=== PATIENT | female | born 1950 | race Caucasian/White ===

== ENCOUNTER 2016-12-01 08:31 | Day surgery (SDC) | payer OTHER ==
[2016-11-30 14:55] VITALS: BMI 24.7
[2016-12-01 10:29] VITALS: TEMP 98
[2016-12-01 12:41] VITALS: BP 146/80; PULSE 71
--- NOTE | 2016-12-02 12:33 | PATH ---
Surgical Pathology Report Patient Name: CHRISTINE APPIAH [facility]. Rec. #: [id number] /Age/Gender: 1950 (Age: 66) / F Account: [id number] Location: [facility]-ENDOSCOPY Taken: 12/01/2016 Received: 12/01/2016 Reported: 12/02/2016 Physicians: Gurpreet Tierney M.D. Specimen(s) Received A: BX DUODENUM B: BX DISTAL ANTRUM C: BX ERYTHEMA BODY OF STOMACH Clinical History Early satiety, atypical chest pain, GERD Epigastric ulcer Final Diagnosis A. DUODENUM, BIOPSY: DUODENAL MUCOSA WITH NO PATHOLOGIC CHANGES. NO HISTOLOGIC EVIDENCE OF GLUTEN SENSITIVE ENTEROPATHY (CELIAC SPRUE) IDENTIFIED. B. STOMACH, DISTAL ANTRUM, BIOPSY: MILD CHRONIC ACTIVE GASTRITIS. IMMUNOSTAIN FOR H. PYLORI IS NEGATIVE. C. STOMACH, BODY, BIOPSY: FOCAL MILD CHRONIC GASTRITIS. IMMUNOSTAIN FOR H. PYLORI IS NEGATIVE. Electronically Signed Anuj Rowan M.D. Gross Description A. Received in formalin, labeled "biopsy duodenum" are 2 philip, irregular portions of soft tissue measuring 0.2 and 0.4 cm. in greatest dimension. The specimens are submitted in toto in one cassette. B. Received in formalin, labeled "biopsy distal antrum" are 2 philip, irregular portions of soft tissue averaging 0.1 cm. in greatest dimension. The specimens are submitted in toto in one cassette. C. Received in formalin, labeled "biopsy erythema body of stomach" are 2 philip, irregular portions of soft tissue measuring 0.3 and 0.4 cm. in greatest dimension. The specimens are submitted in toto in one cassette. 12/01/2016 saudi12/01/2016
== END 2016-12-01 11:30 | disposition home or self-care (01) ==
LOC: JASU-ENDO 08:31
PROVIDERS: ATTEND Internal Medicine Gastroenterology
PROC: 0DJ08ZZ Inspection of Upper Intestinal Tract, Via Natural or Artificial Opening Endoscopic (ICD-10-PCS; principal; 2016-12-01 10:00)
DX: K25.9 Gastric ulcer, unspecified as acute or chronic, without hemorrhage or perforation (principal)
CPT/HCPCS: 88305-TC; 88342-TC

== ENCOUNTER → 2018-02-24 | Day surgery (SDC) | payer OTHER ==
--- NOTE | 2018-02-25 14:24 | PATH ---
Surgical Pathology Report Patient Name: CHRISTINE APPIAH [facility]. Rec. #: [id number] /Age/Gender: 1950 (Age: 68) / F Account: [id number] Location: [facility] Taken: 02/24/2018 Received: 02/24/2018 Reported: 02/25/2018 Physicians: Cosmo Pink M.D. Specimen(s) Received A: LEFT BREAST SPECIMEN WITH CALCIFICATIONS B: LEFT BREAST SPECIMEN WITHOUT CALCIFICATIONS Clinical History Nonpalpable lesion Mammographic findings: Microcalcification, suspicious Final Diagnosis A. BREAST, LEFT, WITH CALCIFICATIONS, STEREOTACTIC BIOPSY: BENIGN BREAST TISSUE SHOWING SCLEROSED FIBROADENOMA WITH ASSOCIATED STROMAL CALCIFICATIONS. B. BREAST, LEFT, WITHOUT CALCIFICATIONS, STEREOTACTIC BIOPSY: BENIGN BREAST TISSUE SHOWING STROMAL FIBROSIS AND FEW CALCIFICATIONS IN ASSOCIATION WITH BENIGN DUCTS. Electronically Signed Avani Muñoz M.D. Gross Description A. Received in formalin labeled "left breast with calcifications," are 6 philip-yellow, cylindrical portions of fibroadipose tissue ranging from 1.0-1.2 cm in length and averaging 0.3 cm in diameter. The specimens are submitted in toto in one cassette. B. Received in formalin labeled "left breast without calcifications," are 4 philip-yellow, cylindrical portions of fibroadipose tissue ranging from 0.6-3.5 cm in length and averaging 0.3 cm in diameter. The specimens are submitted in toto in one cassette. Time to formalin fixation: 5 minutes Total formalin fixation time: Approximately 8 hours. /02/24/2018 saudi02/24/2018
== END | disposition home or self-care (01) ==
LOC: FMAMMOTONE 08:48
PROVIDERS: ATTEND Family Medicine
PROC: 0HBU3ZX Excision of Left Breast, Percutaneous Approach, Diagnostic (ICD-10-PCS; principal; 2018-02-24)
DX: D24.2 Benign neoplasm of left breast (principal); N64.89 Other specified disorders of breast; R92.1 Mammographic calcification found on diagnostic imaging of breast
CPT/HCPCS: 19081; 87899; A4648

== ENCOUNTER 2018-08-09 10:25 | Emergency (ER) | payer OTHER ==
[2018-08-09] MEDS ORDERED: METOCLOPRAMIDE HCL INJECTION 10 MG/2 ML VIAL IVPB ONE (11:08)
[2018-08-09] MEDS ORDERED: KETOROLAC TROMETHAMINE 30 MG/1 ML VIAL IVPUSH ONE (11:08)
[2018-08-09] MEDS ORDERED: SODIUM CHLORIDE 1,000 ML IV STA (11:08)
--- NOTE | 2018-08-09 11:09 | PDOC ---
History of Present Illness - General Stated Complaint: Headache Time Seen by Provider: 08/09/18 11:02 History Source: Patient - History of Present Illness Timing/Duration: reports: other (yesterday) Severity: Yes: severe Associated Symptoms: denies: loss of consciousness, nausea/vomiting, seizures, vision changes Past History - Past Medical History Allergies/Adverse Reactions: Allergies Allergy/AdvReac Type Severity Reaction Status Date / Time No Known Allergies Allergy Verified 08/23/16 08:44 Home Medications: Ambulatory Orders Pantoprazole Sodium 40 mg PO DAILY 12/01/16 Metoprolol Succinate [Toprol XL -] 25 mg PO DAILY 09/14/17 Cyclobenzaprine HCl [Flexeril -] 10 mg PO TID #9 tablet 08/09/18 Naproxen 500 mg PO BID #30 tablet 08/09/18 Anemia: Yes Asthma: No Cancer: No Cardiac Disorders: Yes (PALPITATIONS) CVA: No COPD: No CHF: No Dementia: No Diabetes: No GI Disorders: Yes (GASTRIC ULCER, HEARTBURN, ABDOMINAL PAIN) Disorders: No HTN: No Hypercholesterolemia: No Liver Disease: No Seizures: No Thyroid Disease: No - Surgical History Abdominal Surgery: No Appendectomy: No Cardiac Surgery: No Cholecystectomy: No Lung Surgery: No Neurologic Surgery: Yes (Chiari malformation [id number]) Orthopedic Surgery: No - Suicide/Smoking/Psychosocial Hx Smoking History: Never smoked Hx Alcohol Use: No Drug/Substance Use Hx: No Substance Use Type: None Hx Substance Use Treatment: No Review of Systems - Review of Systems Constitutional: No: Chills, Fever ABD/GI: No: Nausea, Vomiting Musculoskeletal: No: Neck Pain Neurological: Yes: Headache. No: Numbness, Tingling, Weakness, Dizziness *Physical Exam - Physical Exam Comments: 08/09/18 11:27 During evaluation, pt spontaneously grimace in pain for several seconds, during which she states she gets electric shock to right occipital area. 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 negative: Facial Droop, Confused, Disoriented ED Treatment Course - LABORATORY CBC & Chemistry Diagram: 08/09/18 11:11 08/09/18 11:11 Medical Decision Making - Medical Decision Making 08/09/18 11:08 68-year-old [place]ish-speaking female with hx of HLD, cataracts, OA, chronic neck pain, chiari malformation, s/p craniectomy and chiari malformation repair in 2001 at [facility], migraines, here with "electric shock" sensation to R occipital area that started yesterday, intermittent and lasts for seconds. Denies pain otherwise and no numbness, tingling, dizziness, nausea, vomiting, visual changes, neck pain or focal weakness. States she has had similar sensation since her surgery in 2001, with no clear diagnosis. Does report that her neurologist at [facility] has diagnosed with migraines, but states migraine symptoms are different in that she gets temporal headache with dizziness and photophobia, which are not present at this time. Currently not on any pain meds at home See exam HEADLEY Chronic since chiari malformation surgery in 2001 Does not feel like her migraines F/u with neuro at [facility] Last neuroimaging (CTA)of head and neck in 2016 at [facility] Pt stable w/ no focal neuro deficits but with witnessed brief episodes of grimacing in pain during which pt states she gets "electric shock" sensation to R occipital area, lasts for several seconds -pain control -unlikely needs neuroimaging today but will d/w ED attg -dispo pending 08/09/18 13:10 She reports feeling significantly better with meds. Labs within normal limits. As per discussion with Dr. Mock, no indication for neuroimaging at this time. Patient stable for discharge to follow-up with her neurologist this week 08/09/18 13:12 *DC/Admit/Observation/Transfer Diagnosis at time of Disposition: Head pain Qualifiers: Headache type: unspecified Headache chronicity pattern: chronic headache Intractability: not intractable Qualified Code(s): R51 - Headache - Discharge Dispostion Disposition: HOME Condition at time of disposition: Improved - Prescriptions Prescriptions: Cyclobenzaprine HCl [Flexeril -] 10 mg PO TID #9 tablet Naproxen 500 mg PO BID #30 tablet - Referrals - Patient Instructions Additional Instructions: Take medications as prescribed and follow-up with your neurologist this week - Post Discharge Activity
[2018-08-09 11:13] VITALS: TEMP 98; BMI 22.9
[2018-08-09] MEDS ORDERED: diazePAM 5 MG TABLET PO ONE (11:19)
[2018-08-09] MEDS ORDERED: KETOROLAC TROMETHAMINE 30 MG/1 ML VIAL ONE (11:20)
[2018-08-09] MEDS ORDERED: METOCLOPRAMIDE HCL INJECTION 10 MG/2 ML VIAL ONE (11:20)
[2018-08-09 11:30] LABS: EOS % 2.1 % (0-4.5); HEMATOCRIT 34.8 % (32.4-45.2); HEMOGLOBIN 11.5 GM/dL (10.7-15.3); LYMPH % 45.4 % (8-40); MCH 29.1 pg (25.7-33.7); MCHC 33.1 g/dl (32.0-36.0); MEAN CELL VOLUME 87.9 fl (80-96); MEAN PLT VOLUME 8.6 fl (7.5-11.1); MONO % 8.2 % (3.8-10.2); NEUT % 43.3 % (42.8-82.8); PLATELET COUNT 287 K/MM3 (134-434); RBC 3.96 M/mm3 (3.60-5.2); RDW 14.1 % (11.6-15.6); WHITE BLOOD COUNT 5.2 K/mm3 (4.0-10.0)
[2018-08-09] MEDS ORDERED: diazePAM 5 MG TABLET ONE (11:38)
[2018-08-09 11:57] LABS: ALBUMIN 3.8 g/dl (3.4-5.0); ALK PHOS 80 U/L (45-117); ANION GAP -10 MMOL/L (8-16); BILIRUBIN,TOTAL 0.6 mg/dL (0.2-1); BLOOD UREA NITROGEN 12 mg/dL (7-18); CALCIUM 9.1 mg/dL (8.5-10.1); CHLORIDE 109 mmol/L (98-107); CO2 31 mmol/L (21-32); CREATININE 0.9 mg/dL (0.55-1.3); GLUCOSE,RANDOM 81 mg/dL (74-106); POTASSIUM 4.1 mmol/L (3.5-5.1); SGOT/AST 17 U/L (15-37); SGPT/ALT 20 U/L (13-61); SODIUM 130 mmol/L (136-145); TOT PROT 6.8 g/dl (6.4-8.2)
[2018-08-09 13:13] VITALS: BP 109/65; PULSE 65
== END 2018-08-09 13:21 | disposition home or self-care (01) ==
LOC: JER 10:25
PROC: 3E0337Z Introduction of Electrolytic and Water Balance Substance into Peripheral Vein, Percutaneous Approach (ICD-10-PCS; principal; 2018-08-09)
PROC: 3E033GC Introduction of Other Therapeutic Substance into Peripheral Vein, Percutaneous Approach (ICD-10-PCS; 2018-08-09)
PROC: 3E0333Z Introduction of Anti-inflammatory into Peripheral Vein, Percutaneous Approach (ICD-10-PCS; 2018-08-09)
DX: R51 Headache (principal); E78.5 Hyperlipidemia, unspecified; E00.2 Congenital iodine-deficiency syndrome, mixed type; M54.2 Cervicalgia; G89.29 Other chronic pain; Z87.19 Personal history of other diseases of the digestive system; Z87.728 Personal history of other specified (corrected) congenital malformations of nervous system and sense organs; I82.0 Budd-Chiari syndrome
CPT/HCPCS: 36415; 80053; 85025; 96361; 96374; 96375; 99283-25; J7030

== ENCOUNTER 2020-12-16 07:20 | Day surgery (SDC) | payer OTHER ==
[2020-12-09 12:01] VITALS: BMI 23.9
[2020-12-16] MEDS: CIPROFLOXACIN 0.3% EYE DROPS 5 ML BOTTLE ONE ×3 (08:00→08:10)
[2020-12-16] MEDS: CYCLOPENTOLATE 2% OPHTH SOLN 2 ML BOTTLE ONE ×3 (08:00→08:10)
[2020-12-16] MEDS: PHENYLEPHRINE 2.5% OPHTH SOLN 15 ML BOTTLE OD SCH ×3 (08:00→08:10)
[2020-12-16] MEDS: TROPICAMIDE 1% OPHTH SOLN 15 ML BOTTLE ONE ×3 (08:00→08:10)
[2020-12-16 08:06] VITALS: TEMP 98.2
[2020-12-16] MEDS ORDERED: MIDAZOLAM HCL 2 MG/2 ML SINGLE DOSE VIAL ONE (08:50)
[2020-12-16] MEDS ORDERED: ACETAMINOPHEN 325 MG TABLET (FP) PO PRN ×2 (09:21→12:01)
[2020-12-16] MEDS ORDERED: ONDANSETRON 4 MG/2 ML VIAL IVPUSH PRN ×2 (09:21→12:01)
[2020-12-16] MEDS ORDERED: LACTATED RINGERS SOLUTION 1,000 ML IV SCH ×2 (09:30→12:15)
[2020-12-16 10:52] VITALS: BP 132/60; PULSE 66
[2020-12-16] MEDS ORDERED: POVIDONE-IODINE 5% OPHTHALMIC PREP 30 ML SOLUTION ONE (12:02)
[2020-12-16] MEDS ORDERED: TETRACAINE 0.5% OPHTH SOLN 2 ML BOTTLE ONE (12:02)
[2020-12-16] MEDS ORDERED: EPI-SHUGARCAINE (EPINEPHRINE 0.025% & LIDOCAINE-PF 0.75%) 4ML ONE (12:02)
== END 2020-12-16 10:59 | disposition home or self-care (01) ==
LOC: FASU 07:20
PROVIDERS: ATTEND Ophthalmology
PROC: 08RJ3JZ Replacement of Right Lens with Synthetic Substitute, Percutaneous Approach (ICD-10-PCS; principal; 2020-12-16 09:29)
DX: H25.11 Age-related nuclear cataract, right eye (principal)

== ENCOUNTER 2022-05-16 10:52 | Emergency (ER) | payer OTHER ==
[2022-05-16 10:57] VITALS: TEMP 99; BMI 24.7
[2022-05-16] MEDS ORDERED: KETOROLAC TROMETHAMINE 15 MG/ML VIAL IVPUSH ONE (11:54)
[2022-05-16] MEDS ORDERED: SODIUM CHLORIDE 0.9% 500 ML INFUS.BAG IV ONE (11:55)
[2022-05-16] MEDS ORDERED: METOCLOPRAMIDE HCL INJECTION 10 MG/2 ML VIAL IVPB ONE (11:55)
[2022-05-16] MEDS ORDERED: KETOROLAC TROMETHAMINE 15 MG/ML VIAL ONE (11:58)
[2022-05-16] MEDS ORDERED: METOCLOPRAMIDE HCL INJECTION 10 MG/2 ML VIAL ONE (11:58)
[2022-05-16] MEDS ORDERED: ACETAMINOPHEN/CAFFEINE/BUTALBITAL 1 TAB PO ONE ×2 (12:18→16:21)
[2022-05-16 12:36] LABS: BASO % 0.6 % (0-2.0); EOS % 0.3 % (0-4.5); HEMATOCRIT 33.1 % (32.4-45.2); HEMOGLOBIN 10.9 GM/dL (10.7-15.3); LYMPH % 37.9 % (8-40); MCH 28.4 pg (25.7-33.7); MCHC 32.9 g/dl (32.0-36.0); MEAN CELL VOLUME 86.3 fl (80-96); MEAN PLT VOLUME 8.4 fl (7.5-11.1); MONO % 16.4 % (3.8-10.2); NEUT % 44.8 % (42.8-82.8); PLATELET COUNT 242 10^3/uL (134-434); RBC 3.84 M/mm3 (3.60-5.2); RDW 14.1 % (11.6-15.6); WHITE BLOOD COUNT 4.7 K/mm3 (4.0-10.0)
[2022-05-16] MEDS ORDERED: carBAMazepine 100 MG TAB.CHEW PO ONE (12:43)
[2022-05-16] MEDS ORDERED: carBAMazepine 200 MG TABLET ONE (12:50)
[2022-05-16 13:00] LABS: CALCIUM 8.9 mg/dL (8.5-10.1)
[2022-05-16 13:01] LABS: ALBUMIN 3.5 g/dl (3.4-5.0); BLOOD UREA NITROGEN 6.3 mg/dL (7-18)
[2022-05-16 13:04] LABS: CREATININE 0.8 mg/dL (0.55-1.3)
[2022-05-16 13:05] LABS: BILIRUBIN,TOTAL 0.3 mg/dL (0.2-1); TOT PROT 6.5 g/dl (6.4-8.2)
[2022-05-16 13:12] LABS: ERYTHROCYTE SEDIMENTATION RATE 23 mm/hr (0-30)
[2022-05-16] MEDS ORDERED: diazePAM CARPU-JECT 10 MG/2 ML DISP.SYRIN IVPUSH ONE (16:07)
[2022-05-16] MEDS ORDERED: diazePAM CARPU-JECT 10 MG/2 ML DISP.SYRIN ONE (16:20)
[2022-05-16] MEDS ORDERED: MAGNESIUM SULF 50% (8.12 MEQ/2 ML-1 GM VIAL) ONE (16:20)
[2022-05-16] MEDS ORDERED: BACLOFEN 10 MG TABLET (FP) PO ONE (16:21)
[2022-05-16 16:39] VITALS: BP 144/81; PULSE 84
[2022-05-16] MEDS ORDERED: BACLOFEN 10 MG TABLET (FP) ONE (16:48)
[2022-05-16] MEDS ORDERED: ACETAMINOPHEN/CAFFEINE/BUTALBITAL 1 TAB ONE (16:49)
== END 2022-05-16 18:30 | disposition home or self-care (01) ==
LOC: JER 10:52
PROC: 3E033NZ Introduction of Analgesics, Hypnotics, Sedatives into Peripheral Vein, Percutaneous Approach (ICD-10-PCS; principal; 2022-05-16)
DX: R51.9 Headache, unspecified (principal)
CPT/HCPCS: 36415; 70450-TC; 80053; 85025; 85651; 86140; 96365; 99284-25; J0475

== ENCOUNTER 2022-09-08 04:32 | Day surgery (SDC) | payer OTHER ==
[2022-09-04 12:04] VITALS: BMI 24.7
[2022-09-08] MEDS ORDERED: TRIAMCINOLONE ACET 40MG/1ML VIAL ONE (07:38)
[2022-09-08] MEDS ORDERED: BUPIVACAINE HCL/PF 0.5% (5MG/ML) 10 ML VIAL ONE (07:38)
[2022-09-08] MEDS ORDERED: LIDOCAINE HCL/PF 1% SDV 5ML VIAL ONE (07:38)
[2022-09-08] MEDS ORDERED: TRIAMCINOLONE ACETONIDE 40 MG/ML 10 ML VIAL IJ ONE (13:30)
[2022-09-08] MEDS ORDERED: LIDOCAINE HCL 1% PRESERVATIVE FREE - 30ML VIAL IJ ONE (13:30)
[2022-09-08] MEDS ORDERED: IOHEXOL 180 MG/1 ML ML IJ ONE (13:30)
[2022-09-08] MEDS ORDERED: BUPIVACAINE HCL/PF 0.5% (5MG/ML) 10 ML VIAL IJ ONE ×2 (13:30)
[2022-09-08 14:05] VITALS: RESP 16
[2022-09-08 14:21] VITALS: BP 134/80; PULSE 65; TEMP 97.1
== END 2022-09-08 14:17 | disposition home or self-care (01) ==
LOC: JASU-SURG 04:32
PROVIDERS: ATTEND Pain Medicine Pain Medicine
PROC: 3E0U3BZ Introduction of Anesthetic Agent into Joints, Percutaneous Approach (ICD-10-PCS; 2022-09-08)
PROC: 3E0U33Z Introduction of Anti-inflammatory into Joints, Percutaneous Approach (ICD-10-PCS; principal; 2022-09-08 11:50)
DX: M53.3 Sacrococcygeal disorders, not elsewhere classified (principal)
CPT/HCPCS: 76000-TC-FY

== ENCOUNTER 2024-09-28 04:15 | Day surgery (SDC) | payer OTHER ==
[2024-09-26 15:06] VITALS: BMI 24.5
[2024-09-28] MEDS ORDERED: LIDOCAINE HCL/PF 2% SDV 5ML VIAL ONE (07:20)
[2024-09-28] MEDS ORDERED: TRIAMCINOLONE ACET 40MG/1ML VIAL ONE (07:21)
[2024-09-28] MEDS ORDERED: BUPIVACAINE HCL/PF 0.5% (5MG/ML) 10 ML VIAL ONE (07:21)
[2024-09-28] MEDS ORDERED: DEXAMETHASONE SOD PHOSPHATE 10 MG/1 ML VIAL ONE (07:22)
[2024-09-28] MEDS ORDERED: LIDOCAINE HCL/PF 1% SDV 5ML VIAL ONE (07:22)
[2024-09-28] MEDS ORDERED: BUPIVACAINE HCL/PF 0.75% 10 ML VIAL ONE (07:22)
[2024-09-28] MEDS: LIDOCAINE HCL 1% PRESERVATIVE FREE - 30ML VIAL IJ ONE ×2 (08:46)
[2024-09-28] MEDS ORDERED: ACETAMINOPHEN 500 MG TABLET (FP) PO PRN (08:56)
[2024-09-28 09:13] VITALS: RESP 18
[2024-09-28 10:23] VITALS: BP 139/71; PULSE 69; TEMP 97
== END 2024-09-28 10:10 | disposition home or self-care (01) ==
LOC: JASU-SURG 04:15
PROVIDERS: ATTEND Pain Medicine Pain Medicine
PROC: 01HY3MZ Insertion of Neurostimulator Lead into Peripheral Nerve, Percutaneous Approach (ICD-10-PCS; principal; 2024-09-28 08:30)
DX: G89.4 Chronic pain syndrome (principal)
CPT/HCPCS: 64555; C1778; J1100

== ENCOUNTER 2025-08-14 06:15 | Day surgery (SDC) | payer OTHER ==
[2025-08-08 11:58] VITALS: BMI 23.6
[2025-08-14] MEDS ORDERED: LIDOCAINE HCL 1%, 10 MG/ML (20ML VIAL) ONE (07:30)
[2025-08-14] MEDS ORDERED: ISOSULFAN BLUE 50 MG/5 ML VIAL SQ ONE (07:30)
[2025-08-14] MEDS ORDERED: MIDAZOLAM HCL 2 MG/2 ML SINGLE DOSE VIAL ONE (08:41)
[2025-08-14] MEDS ORDERED: ONDANSETRON 4 MG/2 ML VIAL IVPUSH PRN (09:03)
[2025-08-14] MEDS ORDERED: LACTATED RINGERS SOLUTION 1,000 ML IV SCH (09:15)
[2025-08-14] MEDS: LIDOCAINE HCL 1%, 10 MG/ML (20ML VIAL) INF ONE ×2 (10:15)
[2025-08-14] MEDS ORDERED: ACETAMINOPHEN INJECTION 100 ML ONE (11:58)
[2025-08-14] MEDS: ACETAMINOPHEN 1000 MG/100 ML BAG IVPB PRN (12:00)
[2025-08-14 12:51] VITALS: RESP 20; TEMP 97
[2025-08-14 14:13] VITALS: BP 132/85; PULSE 62
== END 2025-08-14 14:07 | disposition home or self-care (01) ==
LOC: JASU-SURG 06:15
PROVIDERS: ATTEND Surgery
PROC: 0HBU0ZZ Excision of Left Breast, Open Approach (ICD-10-PCS; principal; 2025-08-14 09:00)
DX: C50.912 Malignant neoplasm of unspecified site of left female breast (principal)
CPT/HCPCS: 19281; 76098-TC-FY; 88307-TC; 94760; A4648